=== PATIENT | male | born 1960 | race Caucasian/White ===

== ENCOUNTER → 2024-12-13 10:20 | Outpatient (BNVA) | payer OTHER, SELFPAY | PROVIDERS: Visit Provider Emergency Medicine | DX: S60.221A Contusion of right hand, initial encounter (principal); S00.81XA Abrasion of other part of head, initial encounter; W17.89XA Other fall from one level to another, initial encounter | CPT/HCPCS: 70150; 73110; 73130; 99203 ==

== ENCOUNTER → 2024-12-19 07:40 | Outpatient (BNVA) | payer OTHER, SELFPAY | PROVIDERS: Visit Provider Emergency Medicine | DX: S60.011A Contusion of right thumb without damage to nail, initial encounter (principal); S60.221A Contusion of right hand, initial encounter; W17.89XA Other fall from one level to another, initial encounter; Z02.79 Encounter for issue of other medical certificate | CPT/HCPCS: 99213 ==